=== PATIENT | male | born 1975 | race Caucasian/White ===

== ENCOUNTER 2020-06-29 12:53 | Inpatient (IN) | payer OTHER ==
[~2020-06-29] VITALS: Ht 182.9 cm; Wt 79.8 kg
[2020-06-29 19:01] LABS: HEMOGLOBIN 15.8 gm/dl (14.0-17.5); RED BLOOD COUNT 5.05 M/UL (4.20-5.50); WHITE BLOOD COUNT 27.3 K/UL (4.5-11.0)
[2020-06-29 19:21] LABS: BUN/CREATININE RATIO 18 (0-10)
[2020-06-30 04:30] LABS: RED BLOOD COUNT 4.83 M/UL (4.20-5.50); WHITE BLOOD COUNT 23.2 K/UL (4.5-11.0)
[2020-06-30 04:46] LABS: BUN/CREATININE RATIO 20 (0-10)
[2020-06-30] MEDS ORDERED: ALBUTEROL2.5 MG/3 M INH (08:32)
[2020-06-30] MEDS ORDERED: ZYRTEC10 MG PO (08:32)
[2020-06-30] MEDS ORDERED: NORVASC5 MG PO (08:32)
[2020-06-30] MEDS ORDERED: COZAAR100 MG PO (08:33)
[2020-06-30] MEDS ORDERED: DULERA 50 MCG-513 GM INH (08:33)
[2020-06-30] MEDS ORDERED: PROAIR HFA8.5 GM INH (08:33)
[2020-07-01 04:38] LABS: HEMOGLOBIN 13.1 gm/dl (14.0-17.5); WHITE BLOOD COUNT 23.2 K/UL (4.5-11.0)
[2020-07-01 04:39] LABS: RED BLOOD COUNT 4.31 M/UL (4.20-5.50)
[2020-07-01 05:16] LABS: BUN/CREATININE RATIO 19 (0-10)
[2020-07-02 04:30] LABS: WHITE BLOOD COUNT 22.3 K/UL (4.5-11.0)
[2020-07-02 04:43] LABS: BUN/CREATININE RATIO 20 (0-10); RED BLOOD COUNT 4.75 M/UL (4.20-5.50)
[2020-07-02] MEDS ORDERED: MEDROL4 MG PO (11:17)
[2020-07-02] MEDS ORDERED: INCRUSE ELLI62.5 MCG INH (11:17)
== END 2020-07-02 14:50 | disposition home or self-care (01) | DRG 189 ==
LOC: MED SURG 4 17:06
PROVIDERS: Internal Medicine; ADMIT Family Medicine
DX: J96.21 Acute and chronic respiratory failure with hypoxia (principal); J44.1 Chronic obstructive pulmonary disease with (acute) exacerbation; J96.22 Acute and chronic respiratory failure with hypercapnia; R91.8 Other nonspecific abnormal finding of lung field; I10 Essential (primary) hypertension; Z79.899 Other long term (current) drug therapy; F17.210 Nicotine dependence, cigarettes, uncomplicated; Z86.16 Personal history of COVID-19; Z20.822 Contact with and (suspected) exposure to COVID-19; Z89.429 Acquired absence of other toe(s), unspecified side; Z83.3 Family history of diabetes mellitus; Z80.3 Family history of malignant neoplasm of breast; Z80.1 Family history of malignant neoplasm of trachea, bronchus and lung; Z82.49 Family history of ischemic heart disease and other diseases of the circulatory system
CPT/HCPCS: 36415; 80048; 80053; 80061; 80202; 83036; 83605; 83735; 85007; 85025; 85027; 86140; 87040; 87070; 87081; 87205; 93005; 94640; 94664; 94760; J1644; J2543; J2920; J3370; J3475; J7030; J7070

== ENCOUNTER → 2020-09-18 | Outpatient (CLI) | payer OTHER ==
[~2020-09-18] MED LIST: ALBUTEROL2.5 MG/3 M INH; COZAAR100 MG PO; DULERA 50 MCG-513 GM INH; INCRUSE ELLI62.5 MCG INH; MEDROL4 MG PO; NORVASC5 MG PO; PROAIR HFA8.5 GM INH; ZYRTEC10 MG PO
== END ==
LOC: HEART 5 11:44
DX: J44.9 Chronic obstructive pulmonary disease, unspecified (principal)
CPT/HCPCS: 94060; 94729